=== PATIENT | male | born 1955 | race Caucasian/White ===

== ENCOUNTER → 2019-01-15 | Outpatient (CLI) | payer MEDICARE, MEDICAID ==
[2019-01-15 09:35] LABS: ABSOLUTE LYMPHOCYTES (AUTO) 2.1 10^3/uL (0.5-4.7); ABSOLUTE MONOCYTES (AUTO) 0.4 10^3/uL (0.1-1.4); ABSOLUTE NEUT (AUTO) 2.4 10^3/uL (1.7-8.2); BASOPHILS % (AUTO) 0.9 % (0-2); EOSINOPHILS % (AUTO) 0.8 % (0-6); HEMATOCRIT 45.9 % (37.9-51.0); HEMOGLOBIN 15.8 g/dL (13.5-17.0); LYMPHOCYTES % (AUTO) 42.5 % (13-45); MEAN CORPUSCULAR HEMOGLOBIN 33.2 pg (27.0-33.4); MEAN CORPUSCULAR HGB CONC 34.4 g/dL (32.0-36.0); MEAN CORPUSCULAR VOLUME 96 fl (80-97); MONOCYTES % (AUTO) 7.7 % (3-13); PLATELET COUNT 139 10^3/uL (150-450); RED BLOOD COUNT 4.77 10^6/uL (4.35-5.55); RED CELL DISTRIBUTION WIDTH 13.9 % (11.5-14.0); SEGMENTED NEUTROPHILS % (AUTO) 48.1 % (42-78); TOTAL CELLS COUNTED % (AUTO) 100 %
[2019-01-15 10:00] LABS: ALBUMIN 4.1 g/dL (3.5-5.0); ALKALINE PHOSPHATASE 71 U/L (38-126); ANION GAP 10 (5-19); ASPARTATE AMINO TRANSFERASE 57 U/L (17-59); BILIRUBIN,DIRECT 0.1 mg/dL (0.0-0.4); BILIRUBIN,TOTAL 0.8 mg/dL (0.2-1.3); BLOOD UREA NITROGEN 14 mg/dL (7-20); CALCIUM 9.6 mg/dL (8.4-10.2); CARBON DIOXIDE 26 mmol/L (22-30); CHLORIDE 107 mmol/L (98-107); CHOLESTEROL 172.37 mg/dL (0-200); GLUCOSE 82 mg/dL (75-110); POTASSIUM 4.2 mmol/L (3.6-5.0); TOTAL PROTEIN 7.3 g/dL (6.3-8.2); TRIGLYCERIDES 74 mg/dL (<150)
[2019-01-15 10:10] LABS: DIRECT LDL 83 mg/dL (<100)
[2019-01-15 10:33] LABS: PROSTATE SPECIFIC ANTIGEN < 0.060 ng/mL (<4.00)
== END ==
LOC: OD 07:50
PROVIDERS: ATTEND Internal Medicine
DX: E29.1 Testicular hypofunction (principal); D75.1 Secondary polycythemia; R53.83 Other fatigue; M19.90 Unspecified osteoarthritis, unspecified site; R35.1 Nocturia; M06.9 Rheumatoid arthritis, unspecified; E78.5 Hyperlipidemia, unspecified
CPT/HCPCS: 36415; 80053; 80061; 84153; 84403; 84443; 85025; 86430